=== PATIENT | female | born 1945 | race Caucasian/White ===

== ENCOUNTER 2016-09-20 14:28 | Emergency (ER) | payer MEDICARE ==
--- NOTE | ~2016-09-20 | EKG ---
PATIENT: CHETAN PALMA UNIT #: [id number] Ventricular Rate: 98 BPM Atrial Rate: 98 BPM P-R Interval: 150 ms QRS Duration: 74 ms Q-T Interval: 316 ms QTC Calculation(Bezet): 403 ms P [place]: 78 degrees Calculated R [place]: 74 degrees Calculated T [place]: 74 degrees Diagnosis Line: Sinus rhythm with Premature atrial complexes Diagnosis Line: Otherwise normal ECG Diagnosis Line: When compared with ECG of 05-APR-2016 10:07, Diagnosis Line: Premature atrial complexes are now Present Diagnosis Line: Confirmed by FELIX BRITTON MD ([id number]) on Diagnosis Line: 09/22/2016 7:56:31 AM INTERPRETING MD: TOBI WATSON
--- NOTE | ~2016-09-20 | NM69 ---
[facility] A Service of [facility] & [facility] RADIOLOGY TEXT RESULTS PATIENT: CHETAN PALAM LOCATION: JOSE : [birth year] UNIT #: [id number] AGE: [address]: Yamila Jain MD SEX: F ORDER DR: [id number] [facility] [address] [place], [place] [address] [id number] E MR#: [id number] Acc #: [id number] NAME: CHETAN PALMA : 1945 SEX: F STUDY DATE/TIME: 09/20/2016 19:26 UNIT: JOSE ROOM: STUDY DESCRIPTION: NM Pulm Vent and Perf Attending Physician: Yamila Jain M.D. Ordering Physician: Yamila Jain M.D. Primary Care Physician: Ludwig Batista M.D. MEDICAL IMAGING REPORT This report is preliminary unless electronic signature is present EXAM Nuclear Medicine ventilation-perfusion lung scan, 09/20/2016, 1926 hours. CLINICAL HISTORY 71-year-old woman with history of pulmonary embolism 1.5 years ago. Recent shortness of air with progression since yesterday. History of COPD, hypertension, possible pulmonary embolism. COMPARISON CT angiogram of the chest 09/25/2014. Chest x-ray, 09/20/2016. TECHNIQUE Ventilation images were obtained in multiple projections following the inhalation of 36.0 mCi technetium 99m DTPA aerosol. Perfusion images were obtained in multiple similar projections following the IV administration of 5.94 mCi of technetium 99m MAA. FINDINGS The ventilatory images demonstrate diffusely mottled appearance of both lungs with multiple areas of hypoventilation. This mottled pattern is most typical of underlying emphysematous change. The perfusion images demonstrate significantly better uptake of tracer diffusely with small areas of relative decreased perfusion corresponding to the porous areas of ventilation. This study is in the low probability for pulmonary embolism. IMPRESSION Abnormal ventilatory images most consistent with underlying emphysematous change. Perfusion is actually much better than ventilation. The relative areas of hypoperfusion correspond to the largest areas of poor ventilation placing this study in the low probability category for pulmonary embolism. [facility] A Service of [facility] & [facility] RADIOLOGY TEXT RESULTS PATIENT: CHETAN PALMA [id number] : [birth year] UNIT #: [id number] AGE: [address]: Yamila Jain MD SEX: F ORDER DR: Dictated by... Denice Huffman M.D. THIS IS AN ELECTRONICALLY VERIFIED REPORT Denice Huffman M.D. at 09/21/2016 9:36 AM SHANI/senia TD: 09/20/2016 22:56 JOB #: [id number] MEDICAL IMAGING REPORT Page 1 of 1 COPY
--- NOTE | ~2016-09-20 | CR72 ---
[facility] A Service of [facility] & [facility] RADIOLOGY TEXT RESULTS PATIENT: CHETAN PALMA LOCATION: [facility] : [birth year] UNIT #: [id number] AGE: [address]: Yamila Jain MD SEX: F ORDER DR: [id number] [facility] [address] [place], [place] [address] [id number] E MR#: [id number] Acc #: [id number] NAME: CHETAN PALMA : 1945 SEX: F STUDY DATE/TIME: UNIT: [facility] ROOM: STUDY DESCRIPTION: CR Chest Single View Portable Attending Physician: Yamila Jain M.D. Ordering Physician: Yamila Jain M.D. Primary Care Physician: Ludwig Batista M.D. MEDICAL IMAGING REPORT This report is preliminary unless electronic signature is present EXAM Chest portable 09/20/2016 1649 hours HISTORY Cough, shortness of air, fever since yesterday. History of COPD and hypertension. COMPARISON 04/05/2016 FINDINGS 2 portable upright views demonstrate normal cardiac, mediastinal and hilar contours. The lungs are hyperinflated but clear. Old left lower posterior rib fracture is unchanged. IMPRESSION Pulmonary hyperinflation with no acute pulmonary or pleural findings. Dictated by... Denice Huffman M.D. THIS IS AN ELECTRONICALLY VERIFIED REPORT Denice Huffman M.D. at 09/21/2016 9:35 AM SHANI/basil TD: 09/20/2016 21:56 JOB #: [id number] MEDICAL IMAGING REPORT Page 1 of 1 COPY
[~2016-09-20 14:28] MED LIST: ACETAMINOPHEN PO; ACETAMINOPHEN500 M3 PO; ALAVERT10 MG PO; ALBUTEROL 0.5ML INH; ALBUTEROL17 GM; ALBUTEROL17 GM INH; AMOXICILLIN875 MG PO; ASPIRIN81 M2; ASPIRIN81 MG PO; ATORVASTATIN CA20 MG PO; AUGMENTIN875 M1 PO; B-121000 MC3; B-12500 MCG PO; BACTRIM DS TABL1 TA1 PO; BECONASE-AQ25 ML; CARVEDILOL3.125 MG PO; CARVEDILOL6.25 MG PO; CIPROFLOXACIN500 M1 PO; CLARITIN10 M2 PO; COUMADIN5 MG PO; DIFLUCAN PO; FERREX 150 FOR1 EACH PO; FERREX 150 PLU1 EACH PO; FLEXERIL10 MG; FOLIC ACID1 MG PO; HCTZ PO; HYDROCHLOROTHIA25 MG PO; HYDROMET SYRUP480 ML PO; LEVAQUIN PO; LISINOPRIL5 MG PO; LORTAB 5-325 M1 EACH; LOVENOX SUBQ; LOVENOX30 MG/0.3; MACROBID100 MG; MUCINEX1200 MG/BO PO; NORCO1 TAB 10/3 PO; PANTOPRAZOLE SO40 MG PO; PHENERGAN/CODEINE PO; PREDNISONE; PREDNISONE PO; PRINIVIL10 MG PO; PROAIR HFA8.5 GM IH; PROAIR HFA8.5 GM INH; PYRIDIUM100 MG; QVAR7.3 G1 INH; SYMBICORT; SYMBICORT INH; VIBRAMYCIN100 M1 PO; [UNRECOGNIZED DRUG - OTHER] PO
[2016-09-20 15:12] LABS: BASOPHIL# 0.1 X10e3 (0-0.3); BASOPHIL% 0.9 % (0-2.5); HEMATOCRIT 41.5 % (35.0-45.0); HEMOGLOBIN 13.9 gm/dL (12.0-16.0); LYMPHOCYTE# 0.5 X10e3 (1.0-3.5); LYMPHOCYTE% 6.3 % (17.0-45.0); MEAN CELL VOLUME 85.5 FL (83-96); MEAN CORPUSCULAR HEMOGLOBIN 28.7 PG (28-34); MEAN CORPUSCULAR HGB CONC 33.5 g/dL (30-36); MEAN PLATELET VOLUME 8.6 FL (6.5-11.5); MONOCYTE# 0.4 X10e3 (0-1.0); MONOCYTE% 5.9 % (3.0-12.0); NEUTROPHIL# 6.3 X10e3 (1.5-7.1); NEUTROPHIL% 86.9 % (40-75); PLATELET COUNT 171 X10e3 (140-420); RED BLOOD COUNT 4.85 X10e (3.90-5.30); RED CELL DISTRIBUTION WIDTH 14.3 % (11.0-15.5); WHITE BLOOD COUNT 7.2 X10e3 (4.0-10.5)
[2016-09-20 15:14] LABS: DIFF IND NO
[2016-09-20 15:36] LABS: ALBUMIN SERUM 3.7 g/dL (3.5-5.0); BILIRUBIN, DIRECT 0.2 mg/dL (0.0-0.2); BILIRUBIN,INDIRECT 0.9 mg/dL (0.0-0.9); BILIRUBIN,TOTAL 1.1 mg/dL (0.2-2.0); BUN/CREATININE RATIO 17.5; CALCIUM SERUM 8.7 mg/dL (8.4-10.2); CREATININE SERUM 1.2 mg/dL (0.6-1.4); GLOM FILT RATE Estimated 45.8 mL/min (>60); POTASSIUM 4.1 mmol/L (3.5-5.1); PROTEIN TOTAL SERUM 6.9 g/dL (6.0-8.3)
[2016-09-20 18:09] LABS: INFLUENZA A NEG (NEG); INFLUENZA B NEG (NEG)
[2016-09-20 18:38] LABS: POC - CKMB <1.0 ng/mL (0.0-7.9); POC - TROPONIN <0.05 ng/mL (<=0.05)
[2016-09-20 18:54] LABS: POC - CKMB <1.0 ng/mL (0.0-7.9); POC - TROPONIN <0.05 ng/mL (<=0.05)
== END 2016-09-20 21:05 | disposition home or self-care (01) ==
LOC: CED 14:28
PROVIDERS: Emergency Medicine
DX: J44.1 Chronic obstructive pulmonary disease with (acute) exacerbation (principal); I10 Essential (primary) hypertension; F17.210 Nicotine dependence, cigarettes, uncomplicated; Z90.89 Acquired absence of other organs; Z88.1 Allergy status to other antibiotic agents; Z79.899 Other long term (current) drug therapy; Z79.82 Long term (current) use of aspirin
CPT/HCPCS: 71010; 78582; 80048; 80076; 82553; 83605; 83880; 84484; 85025; 87040; 87804; 93005; 94640; 96361; 96365; 96375; 99285; A9540; A9567; J2930; J3475

== ENCOUNTER 2016-10-15 14:59 | Emergency (ER) | payer MEDICARE ==
[~2016-10-15] VITALS: Ht 170.2 cm; Wt 59.0 kg
--- NOTE | ~2016-10-15 | CR72 ---
[facility] A Service of [facility] RADIOLOGY TEXT RESULTS PATIENT: CHETAN PALMA LOCATION: JOSE : [birth year] UNIT #: [id number] AGE: [address]: Bob Cho MD SEX: F ORDER DR: [id number] [facility] [address] [place], [place] [address] [id number] E MR#: [id number] Acc #: [id number] NAME: CHETAN PALMA : 1945 SEX: F STUDY DATE/TIME: 10/15/2016 17:07 UNIT: [facility] ROOM: STUDY DESCRIPTION: CR Chest Single View Portable Attending Physician: Bob Cho M.D. Ordering Physician: Bob Cho M.D. Primary Care Physician: Ludwig Batista M.D. MEDICAL IMAGING REPORT This report is preliminary unless electronic signature is present EXAM Frontal chest, 10/15/2016 INDICATION 71-year-old female with shortness of air, cough, congestion and dizziness. Chronic symptoms but worse the past 2 days. Tobacco use for over 40 years. Hypertension. TECHNIQUE Frontal chest compared with 09/20/2016. FINDINGS Cardiac silhouette is stable. There is pulmonary hyperinflation. Vascularity unremarkable. No new effusion, dense consolidation or pneumothorax. Incidental bone island in the right humerus suspected. Chronic posterior rib fracture on the left. IMPRESSION Pulmonary hyperinflation. Otherwise negative frontal chest no significant change. Dictated by... Madhu Davila M.D. THIS IS AN ELECTRONICALLY VERIFIED REPORT Madhu Davila M.D. at 10/16/2016 11:43 AM NATHALIE/rich[place] TD: 10/16/2016 03:30 JOB #: [id number] [facility] A Service [facility] RADIOLOGY TEXT RESULTS PATIENT: CHETAN PALMA LOCATION: [facility] : [birth year] UNIT #: [id number] AGE: [address]: Bob Cho MD SEX: F ORDER DR: MEDICAL IMAGING REPORT Page 1 of 1 COPY
--- NOTE | ~2016-10-15 | EKG ---
PATIENT: CHETAN PALMA UNIT #: [id number] Ventricular Rate: 95 BPM Atrial Rate: 95 BPM P-R Interval: 150 ms QRS Duration: 72 ms Q-T Interval: 324 ms QTC Calculation(Bezet): 407 ms P [place]: 70 degrees Calculated R [place]: 53 degrees Calculated T [place]: 71 degrees Diagnosis Line: Sinus rhythm with Premature supraventricular Diagnosis Line: complexes Diagnosis Line: Cannot rule out Anterior infarct , age Diagnosis Line: undetermined Diagnosis Line: Abnormal ECG Diagnosis Line: When compared with ECG of 20-SEP-2016 14:57, Diagnosis Line: No significant change was found Diagnosis Line: Confirmed by NARESH GUILLEN MD ([id number]) on 10/18/2016 Diagnosis Line: 7:49:20 AM INTERPRETING MD: WILMER WATSON
--- NOTE | ~2016-10-15 | NM69 ---
[facility] A Service of [facility] & [facility] RADIOLOGY TEXT RESULTS PATIENT: CHETAN PALMA LOCATION: JOSE : [birth year] UNIT #: [id number] AGE: [address]: Bob Cho MD SEX: F ORDER DR: [id number] [facility] [address] [place], [place] [address] [id number] E MR#: [id number] Acc #: [id number] NAME: CHETAN PALMA : 1945 SEX: F STUDY DATE/TIME: 10/15/2016 19:40 UNIT: JOSE ROOM: STUDY DESCRIPTION: NV Pulm Vent and Perf Attending Physician: Bob Cho M.D. Ordering Physician: Bob Cho M.D. Primary Care Physician: Ludwig Batista M.D. MEDICAL IMAGING REPORT This report is preliminary unless electronic signature is present EXAM Ventilation-perfusion radionuclide lung scan, 10/15/2016 HISTORY Dyspnea. Prior PE, short of air, COPD, smoker, less than 1/2 half pack per day. Trying to quit. FINDINGS Following inhalation of 34.3 mCi aerosolized technetium-99m DTPA and intravenous administration 5.5 mCi technetium 99m MAA, multiple views of the thorax were obtained. Comparison to chest radiograph 10/15/2016 which showed hyperinflation of the lungs consistent with the patient's stated history of COPD. The perfusion and ventilation images on the current examination show markedly heterogeneous distribution of radiotracer on the ventilation and perfusion images. Multiple matching perfusion ventilation defects. No perfusion ventilation mismatching defects. The study is felt to be low probability for pulmonary embolus and likely reflects underlying COPD. If there is ongoing concern for pulmonary thromboembolic disease and if the patient is a candidate, consider CT pulmonary angiography. IMPRESSION Markedly heterogeneous distribution of radiotracer on perfusion and ventilation images. Multiple matching perfusion ventilation defects. No perfusion ventilation mismatches. The study is felt to be low probability for pulmonary embolus and the appearance of the lungs is favored to reflect underlying COPD. If there is ongoing concern for pulmonary thromboembolic disease and if the patient is a candidate, consider CT pulmonary angiography. Dictated by... Bob Oden M.D. [facility] A Service of [facility] & [facility] RADIOLOGY TEXT RESULTS PATIENT: CHETAN PALMA LOCATION: [facility] : [birth year] UNIT #: [id number] AGE: [address]: Bob Cho MD SEX: F ORDER DR: THIS IS AN ELECTRONICALLY VERIFIED REPORT Bob Oden M.D. at 10/16/2016 2:44 PM GINETTE/simon TD: 10/16/2016 08:01 JOB #: [id number] MEDICAL IMAGING REPORT Page 1 of 1 COPY
[2016-10-15 16:02] LABS: BASOPHIL% 0.7 % (0-2.5); DIFF IND NO; EOSINOPHIL% 0.1 % (0.0-7.0); HEMOGLOBIN 13.8 gm/dL (12.0-16.0); LYMPHOCYTE# 0.4 X10e3 (1.0-3.5); LYMPHOCYTE% 6.6 % (17.0-45.0); MEAN CELL VOLUME 88.6 FL (83-96); MEAN CORPUSCULAR HEMOGLOBIN 29.1 PG (28-34); MEAN CORPUSCULAR HGB CONC 32.8 g/dL (30-36); MEAN PLATELET VOLUME 8.6 FL (6.5-11.5); MONOCYTE# 0.4 X10e3 (0-1.0); MONOCYTE% 6.2 % (3.0-12.0); NEUTROPHIL# 5.4 X10e3 (1.5-7.1); NEUTROPHIL% 86.4 % (40-75); PLATELET COUNT 160 X10e3 (140-420); RED BLOOD COUNT 4.74 X10e (3.90-5.30); RED CELL DISTRIBUTION WIDTH 14.8 % (11.0-15.5); WHITE BLOOD COUNT 6.2 X10e3 (4.0-10.5)
[2016-10-15 16:04] LABS: ALBUMIN SERUM 3.4 g/dL (3.5-5.0); BILIRUBIN, DIRECT 0.1 mg/dL (0.0-0.2); BILIRUBIN,INDIRECT 1.2 mg/dL (0.0-0.9); BILIRUBIN,TOTAL 1.3 mg/dL (0.2-2.0); BUN/CREATININE RATIO 15.38; CALCIUM SERUM 8.5 mg/dL (8.4-10.2); CREATININE SERUM 1.3 mg/dL (0.6-1.4); GLOM FILT RATE Estimated 41.5 mL/min (>60); POTASSIUM 4.1 mmol/L (3.5-5.1); PROTEIN TOTAL SERUM 6.5 g/dL (6.0-8.3)
[2016-10-15 17:00] LABS: POC - CKMB <1.0 ng/mL (0.0-7.9); POC - TROPONIN <0.05 ng/mL (<=0.05)
[2016-10-15 17:44] LABS: URINE SOURCE CLEAN CATCH
[2016-10-15 17:50] LABS: URINE APPEARANCE CLOUDY; URINE BILIRUBIN NEG (NEG); URINE BLOOD NEG (NEG); URINE COLOR DK YELLOW; URINE GLUCOSE NEG (NEG); URINE KETONE NEG (NEG); URINE LEUKOCYTE ESTERASE 3+ (NEG); URINE NITRATE NEG (NEG); URINE PROTEIN TRACE (NEG); URINE SPECIFIC GRAVITY 1.025 (1.003-1.035)
[2016-10-15 17:53] LABS: CULTURE INDICATED? YES; URBCS1 AUWI 0-2 /[HPF] (0-2); URINE BACTERIA AUWI 2+ (NEGATIVE); URINE SQUAMOUS EPITHELIAL CELL MANY /[HPF]; UWBCS1 AUWI 100-200 (0-5)
[2016-10-15 18:21] LABS: POC - CKMB <1.0 ng/mL (0.0-7.9); POC - TROPONIN <0.05 ng/mL (<=0.05)
[2016-12-14] MEDS ORDERED: MULTIVITAMINS1 EAC3 PO (10:23)
[2016-12-14] MEDS ORDERED: ASPIRIN EC81 M1 PO (10:50)
[2016-12-14] MEDS ORDERED: MUCINEX PO (10:50)
[2016-12-14] MEDS ORDERED: CLARITIN10 M3 PO (10:50)
[2016-12-14] MEDS ORDERED: LIPITOR20 MG PO (10:51)
[2016-12-14] MEDS ORDERED: LISINOPRIL5 MG PO (10:51)
[2016-12-14] MEDS ORDERED: CARVEDILOL3.125 MG PO (10:51)
[2016-12-14] MEDS ORDERED: INHALER INH (10:52)
== END 2016-10-15 21:16 | disposition home or self-care (01) ==
LOC: CED 14:59
PROVIDERS: Emergency Medicine
DX: J44.1 Chronic obstructive pulmonary disease with (acute) exacerbation (principal); N39.0 Urinary tract infection, site not specified; E78.5 Hyperlipidemia, unspecified; I10 Essential (primary) hypertension; F17.200 Nicotine dependence, unspecified, uncomplicated
CPT/HCPCS: 36415; 71010; 78582; 80048; 80076; 81003; 82553; 83605; 84484; 85025; 85379; 87040; 87086; 93005; 94640; 96361; 96365; 99285; A9540; A9567; J0696